=== PATIENT | female | born 1950 | race Caucasian/White ===

== ENCOUNTER → 2018-02-05 17:11 | Outpatient (CLI) | payer MEDICARE, SELFPAY ==
--- NOTE | 2018-02-05 | EMB_PTH ---
PATIENT: RICKI HENLEY LOC: [facility] U#:[id number] AGE/SX: 75/F ROOM: RE02/05/[address]: VENECIA Barajas : 1950 BED: DIS: SPEC #: [id number] RECD: 02/05/18 17:08 STATUS: SANJIV KYLIE #: [id number] LATANYA: 02/05/18 00:[address]: Susan Leos NP DEPT: SURGICAL PATHOLOGY RECD BY: Alyssa Carranza ENTERED: 02/06/18 08:41 SP TYPE: ENDOM BX/C ABBEY DR: Dr. Jeronimo Tillman MD Tissues: Endometrium, NOS Procedures: Surgery Specimen Level IV HEADER OPERATION: Endometrial biopsy PRE-OP DIAGNOSIS: Abnormal uterine bleeding TISSUE SUBMITTED: Endometrial lining MICROSCOPIC DIAGNOSIS Endometrial biopsy: Strips of benign endometrial epithelium consistent with atrophic endometrium, blood and mucous. SJ:ken 7/11/18 MICROSCOPIC DESCRIPTION Slides are reviewed. GROSS DESCRIPTION Received is one container labeled with the patient's name and not further designated. The specimen consists of multiple irregular fragments of almodovar mucoid tissue that in aggregate measure 1 x 0.5 x 0.1 cm. The specimen is totally submitted in one cassette. / SJ:ken 02/06/18 TC:4 CPT: 26643
== END ==
PROVIDERS: Visit Provider Nurse Practitioner Women's Health
DX: N93.9 Abnormal uterine and vaginal bleeding, unspecified (principal)
CPT/HCPCS: 88305

== ENCOUNTER → 2018-02-26 07:53 | Outpatient (CLI) | payer MEDICARE, SELFPAY ==
--- NOTE | 2018-02-26 07:55 | US_ITS ---
STUDY: ULTRASOUND OF THE FEMALE PELVIS REASON FOR EXAM: Female, 68 years old. Postmenopausal bleeding LMP: Postmenopausal TECHNIQUE: Transverse and longitudinal imaging of the pelvis was obtained transabdominally and transvaginally using real-time ultrasound. COMPARISON: None. FINDINGS: The uterus is anteverted and is in a midline position. The uterus measures 5.0 x 3.0 x 5.1 cm. The cervix is unremarkable. The endometrium measures 13.5 mm in thickness, and is hyperechoic but heterogeneous with cystic areas. There is no discrete endometrial mass. There are masses in the myometrium with coarse calcifications. The largest measures 1.8 x 1.6 x 1.9 cm. I.U.D. - The patient does not have an I.U.D. The right ovary is not visualized. There is no visualized right adnexal mass or complex lesion. The left ovary is not visualized. There is no visualized left adnexal mass or complex lesion. There is no fluid in the cul-de-sac. No significant abnormalities are seen on limited visualization of the urinary bladder. US/Transvaginal Non- IMPRESSION: The endometrium is markedly thickened and heterogeneous with cystic areas. There are numerous small calcified fibroids in the myometrium. Neither ovary was visualized. There are no abnormal masses in the adnexal regions. There is no free fluid in the pelvis. Electronically Signed: Urmila Gamez MD at 20:55 EDT Tel Direct: [phone], Service support ,
--- NOTE | 2018-02-26 07:55 | US_ITS ---
STUDY: ULTRASOUND OF THE FEMALE PELVIS REASON FOR EXAM: Female, 68 years old. Postmenopausal bleeding LMP: Postmenopausal TECHNIQUE: Transverse and longitudinal imaging of the pelvis was obtained transabdominally and transvaginally using real-time ultrasound. COMPARISON: None. FINDINGS: The uterus is anteverted and is in a midline position. The uterus measures 5.0 x 3.0 x 5.1 cm. The cervix is unremarkable. The endometrium measures 13.5 mm in thickness, and is hyperechoic but heterogeneous with cystic areas. There is no discrete endometrial mass. There are masses in the myometrium with coarse calcifications. The largest measures 1.8 x 1.6 x 1.9 cm. I.U.D. - The patient does not have an I.U.D. The right ovary is not visualized. There is no visualized right adnexal mass or complex lesion. The left ovary is not visualized. There is no visualized left adnexal mass or complex lesion. There is no fluid in the cul-de-sac. No significant abnormalities are seen on limited visualization of the urinary bladder. US/Pelvic (Non ) IMPRESSION: The endometrium is markedly thickened and heterogeneous with cystic areas. There are numerous small calcified fibroids in the myometrium. Neither ovary was visualized. There are no abnormal masses in the adnexal regions. There is no free fluid in the pelvis. Electronically Signed: Urmila Gamez MD at 20:55 EDT Tel Direct: [phone], Service support ,
== END ==
PROVIDERS: Family Provider Internal Medicine Infectious Disease; PCP Internal Medicine Infectious Disease; Visit Provider Nurse Practitioner Women's Health
DX: N95.0 Postmenopausal bleeding (principal)
CPT/HCPCS: 76830; 76856

== ENCOUNTER 2018-04-25 14:15 | Day surgery (SDC) | payer MEDICARE, SELFPAY ==
--- NOTE | 2018-04-18 09:49 | EKG12_ITS ---
Test Reason : PRE OP Blood Pressure : / mmHG Vent. Rate : 062 BPM Atrial Rate : 062 BPM P-R Int : 146 ms QRS Dur : 076 ms QT Int : 414 ms P-R-T Axes : 053 022 001 degrees QTc Int : 420 ms Normal sinus rhythm Normal ECG Confirmed by KELIN BECERRA, MELVINA ([id number]), writer editor LEE ALMEIDA ([id number]) on 04/19/2018 2:07:48 PM Referred By: Nathaly Goldstein Confirmed By:MELVINA NEVILLE MD
[2018-04-18 10:27] LABS: Hematocrit 41.6 % (37-47); Hemoglobin 13.6 g/dl (12.0-15.0); Mean Corp Hgb Conc 32.7 g/gl (32-36); Mean Corpuscular Hgb 29.1 pg (27.0-32.0); Mean Corpuscular Volume 88.9 fL (81-99); Mean Platelet Vol. 10.9 fl (6.2-12.0); Platelet Count 272 K/mm3 (150-450); RBC Distribution Width CV 13.2 % (11.6-14.6); RBC Distribution Width SD 42.4 fl (35.1-43.9); Red Blood Count 4.68 M/mm3 (4.2-5.4); White Blood Count 5.7 K/mm3 (4.4-11.0)
[2018-04-18 10:30] LABS: Scan Indicated on CBC? Y/N NO
[2018-04-25] VITALS (7 sets, daily range): BP systolic 116–134; BP diastolic 62–71; PULSE 59–72; RESP 16; TEMP 36.6–37.2; O2SAT 98–100; BMI 28.0
--- NOTE | 2018-04-25 15:26 | PCM.HP.STD ---
Problem List (1) Postmenopausal bleeding Status: Acute (2) Thickened endometrium Status: Acute History of Present Illness Date of Admission: 04/25/18 Chief Complaint: endometrial thickening The patient is a 68 year old F presents with thickened endometrium and possible polyps. she has had postmenopausal bleeding. Past Medical History Medical History: Medical History (Last Reviewed 03/19/18 @ 14:51 by María Waters) Abnormal Pap smear of cervix R87.619 Heart attack I21.9 Indigestion K30 Allergies betamethasone [From Celestone] Allergy (Verified 04/18/18 09:16) Other SUNBURN LIKE RASH lidocaine [From Xylocaine] Allergy (Verified 04/18/18 09:16) Other SUNBURN sulfamethoxazole [From Bactrim] Adverse Reaction (Intermediate, Verified 03/19/18 14:50) reddened like a sunburn trimethoprim [From Bactrim] Adverse Reaction (Intermediate, Verified 03/19/18 14:50) reddened like a sunburn Home Medications: Ambulatory Orders Medication Instructions Recorded aspirin 81 mg chewable tablet 81 mg PO QDAY 02/05/18 esomeprazole magnesium 20 mg 20 mg PO QDAY 02/05/18 capsule,delayed release metoprolol tartrate 25 mg tablet 25 mg PO BID 02/05/18 pravastatin 40 mg tablet 40 mg PO QDAY 03/19/18 Esomeprazole Mag Trihydrate 20 mg PO DAILY 04/25/18 [Nexium] Surgical History: Surgical History (Last Reviewed 03/19/18 @ 14:51 by María Waters) H/O LEEP Z98.890 H/O heart artery stent Z95.5 H/O breast biopsy Z98.890 H/O dilation and curettage Z98.890 S/P appendectomy Z90.49 Smoking Status: Former smoker Review of Systems Constitutional: Denies: Fever, Malaise Eyes: Denies: Blurred vision, Vision Change HEENT: Denies: Head Aches, Visual Changes Cardiovascular: Denies: Chest Pain, Palpitations Respiratory: Denies: Cough, Shortness of Breath, Wheezing Gastrointestinal: Denies: Abdominal Pain, Diarrhea, Nausea, Vomiting Genitourinary: Denies: Dysuria, Hematuria Gynecological: Reports: Vaginal bleeding Musculoskeletal: Denies: Joint Pain, Muscle pain Skin: Denies: Lesions, Rash Neurological: Denies: Blurred vision, Focal weakness, Headaches Psychiatric: Denies: Anxiety, Depression Endocrine: Denies: Heat/ Cold Intolerance Hematologic/ Lymphatic: Denies: Easy Bruising, Easy Bleeding VTE Information - Inpt Only VTE Present on Admission: No - Physical Exam General: Alert, Oriented x3, Cooperative HEENT: Atraumatic, EOMI, Normocephalic Neck: Supple Lungs: Clear to auscultation, Normal air movement Cardiovascular: Regular rate, No murmurs Abdomen: Soft, Non Tender Extremities: No edema Skin: No rashes, No breakdown Musculoskeletal: No Tenderness to Palpation of Joints or Extremities Neurological: Cranial nerves II-XII grossly intact Psych/Mental Status: Normal Affect, Appropriate Vital Signs Temp Pulse Resp BP Pulse Ox 98 F 71 16 134/71 H 100 04/25/18 14:41 04/25/18 14:41 04/25/18 14:41 04/25/18 14:41 04/25/18 14:41 Oxygen Delivery Method Room Air Weight: 158 lb 9.6 oz Body Mass Index (BMI) 28.0 Assessment/Plan All Active Problems (Last Reviewed 03/19/18 @ 14:51 by María Waters) Postmenopausal bleeding (Acute) Thickened endometrium (Acute) 68 yo with PMB plan d and c hysteroscopy symphion
--- NOTE | 2018-04-25 15:55 | EMB_PTH ---
PATIENT: RICKI HENLEY LOC: [facility] [place] U#:[id number] AGE/SX: 68/F ROOM: RE04/25/[address]: Dr. Nathaly Goldstein MD : 1950 BED: DIS: 04/25/2018 SPEC #: [id number] RECD: 04/26/18 10:30 STATUS: SANJIV REYaa #: [id number] LATANYA: 04/25/18 15:[address]: Nathaly Goldstein DEPT: SURGICAL PATHOLOGY RECD BY: Alyssa Carranza ENTERED: 04/26/18 11:11 SP TYPE: ENDOM BX/C ABBEY DR: Dr. Jeronimo Tillman MD Tissues: Endometrium, NOS Procedures: Surgery Specimen Level IV HEADER OPERATION: Hysteroscopy, myomectomy, Symphion PRE-OP DIAGNOSIS: Post menopausal bleeding, thickened endometrium TISSUE SUBMITTED: Endometrial tissue MICROSCOPIC DIAGNOSIS Endometrial tissue: Simple cystic hyperplasia without atypia. Fragments of myometrium. SJ:ken 04/27/18 COMMENT Please make reference to previous specimen ([id number]), endometrial biopsy with diagnosis of strips of benign endometrial epithelium consistent with atrophic endometrium, blood and mucous. MICROSCOPIC DESCRIPTION Slides are reviewed. GROSS DESCRIPTION Received in fixative is one container labeled with the patient's name and designated endometrial tissue. The specimen consists of multiple irregular fragments of almodovar soft tissue that in aggregate measure 6 x 3 x 0.3 cm. The entire specimen is submitted in three cassettes. / NAOMI:ken 04/26/18 TC:5 CPT: 30415
--- NOTE | 2018-04-25 17:15 | DCINST_ITS ---
Discharge Diet: No Restrictions Discharge Activity: Return to Normal Activity, May Shower, May Take a Tub Bath Allergies/Adverse Reactions: Allergies betamethasone [From Celestone] Allergy (Verified 04/18/18 09:16) Other SUNBURN LIKE RASH lidocaine [From Xylocaine] Allergy (Verified 04/18/18 09:16) Other SUNBURN sulfamethoxazole [From Bactrim] Adverse Reaction (Intermediate, Verified 03/19/18 14:50) reddened like a sunburn trimethoprim [From Bactrim] Adverse Reaction (Intermediate, Verified 03/19/18 14:50) reddened like a sunburn Medications to take at Discharge aspirin 81 mg chewable tablet 81 mg PO QDAY 02/05/18 esomeprazole magnesium 20 mg capsule,delayed release 20 mg PO QDAY 02/05/18 metoprolol tartrate 25 mg tablet 25 mg PO BID 02/05/18 pravastatin 40 mg tablet 40 mg PO QDAY 03/19/18 Esomeprazole Mag Trihydrate [Nexium] 20 mg PO DAILY 04/25/18 Primary Care Physician: Jeronimo Tillman [Primary Care Provider] - Test Results: Test results from this visit will be discussed in further detail at your follow- up appointment, if applicable. Please Follow Up With: Nathaly Goldstein MD - [phone]
--- NOTE | 2018-04-25 20:55 | PCM.OPRPT ---
Problem List (1) Postmenopausal bleeding Status: Acute (2) Thickened endometrium Status: Acute Report of Operation Date of Procedure: 04/25/18 Pre-Operative Diagnosis: pmb Post-Operative Diagnosis: same Surgery/Procedure Performed:: d and c hysteroscopic polypectomy resection Description of Surgical Findings:: endometrial polyp Type of Anesthesia:: Local MAC Specimen's removed: polyp emc Drains: none Estimated Blood Loss (mL): minimal Fluids Replaced: crystalloid Description of Procedure: Patient was prepped and draped in a normal sterile fashion under MAC anesthesia. A weighted speculum was placed in the vagina and the anterior lip of the cervix was grasped with a single-tooth tenaculum. Cervix was progressively dilated to allow passage of a 5 mm hysteroscope. The lining was fully visualized and noted to have a large posterior polyp. Uterine sounded to 7 cm. symphion device was used to resect the polyp completly and perform a direct visual d and c, and device was sent to pathology. All instruments were removed from the vagina and excellent hemostasis was noted. Patient was awoken and taken to recovery in stable condition. - Complications none - Admit VTE Documentation VTE Present on Admission: No
== END 2018-04-25 18:10 | disposition home or self-care (01) ==
LOC: SDC 14:15 → AC 15:01
PROVIDERS: Family Provider Internal Medicine Infectious Disease; PCP Internal Medicine Infectious Disease; Visit Provider Obstetrics & Gynecology
PROC: (CPT 58558; principal; 2018-04-25 15:40)
DX: N85.01 Benign endometrial hyperplasia (principal); I25.5 Ischemic cardiomyopathy; K30 Functional dyspepsia; K21.9 Gastro-esophageal reflux disease without esophagitis; E78.00 Pure hypercholesterolemia, unspecified; Z95.5 Presence of coronary angioplasty implant and graft; Z87.891 Personal history of nicotine dependence; Z87.442 Personal history of urinary calculi; Z79.82 Long term (current) use of aspirin; Z79.899 Other long term (current) drug therapy
CPT/HCPCS: 58558; 36415; 85027; 86850; 86900; 88305; 93005; J7120; J2405